=== PATIENT | female | born 1955 | race Caucasian/White ===

== ENCOUNTER → 2016-09-25 | Outpatient (CLI) | payer MEDICARE, OTHER ==
[~2016-09-25] MED LIST: ASPI-825 PO; FURO20 PO; KDUR10 PO; METF500T4 PO; METO50 PO; MONT10TA21 PO; NITR1PAT68 TD; QUET300XR PO; RANO500T3 PO; RISP3 PO; ROSU10 PO; TICA90TA PO; TOPI100 PO
[2016-09-25 10:15] LABS: BASOPHILS % (AUTO) 0.4 % (0.0-2.0); EOSINOPHILS % (AUTO) 2.2 % (1.0-6.0); HEMOGLOBIN 13.6 g/dL (12.0-16.0); LYMPHOCYTES # (AUTO) 1.3 K/uL (1.0-4.8); LYMPHOCYTES % (AUTO) 16.2 % (22.0-44.0); MEAN CORPUSCULAR HEMOGLOBIN 31.2 pg (26.0-34.0); MEAN CORPUSCULAR HGB CONC 33.9 G/dL (31.0-37.0); MEAN CORPUSCULAR VOLUME 92 fL (80-100); MONOCYTES # (AUTO) 0.6 K/uL (0.1-1.0); MONOCYTES % (AUTO) 7.6 % (2.0-9.0); NEUTROPHILS # (AUTO) 5.7 K/uL (1.8-7.7); NEUTROPHILS % (AUTO) 73.6 % (40.0-70.0); PLATELET COUNT (AUTO) 280 K/uL (150-450); RED BLOOD CELL COUNT(AUTO) 4.34 MIL/uL (4.00-5.20); RED CELL DISTRIBUTION WIDTH 14.8 % (11.5-14.5); WHITE BLOOD COUNT (AUTO) 7.8 K/uL (4.5-11.0)
[2016-09-25 10:35] LABS: ALBUMIN 3.7 g/dL (3.4-5.0); BILIRUBIN,TOTAL 0.3 mg/dL (0.1-1.0); CALCIUM, TOTAL 8.9 mg/dL (8.8-10.5); CHOL/HDL RATIO 2.4 (3.9-5.7); CREATININE 1.1 mg/dL (0.60-1.30); MAGNESIUM 2.1 mg/dL (1.80-2.40); THYROID STIMULATING HORMONE 2.01 uIU/mL (0.36-3.74); TOTAL PROTEIN, SERUM 7.1 g/dL (6.4-8.2)
[2016-09-25 10:49] LABS: HEMOGLOBIN A1C 5.9 % (4.5-6.2)
== END | disposition home or self-care (01) ==
LOC: LABPV 07:22
PROVIDERS: ATTEND Internal Medicine Cardiovascular Disease
DX: I11.0 Hypertensive heart disease with heart failure (principal); I50.9 Heart failure, unspecified; E11.8 Type 2 diabetes mellitus with unspecified complications; E55.9 Vitamin D deficiency, unspecified
CPT/HCPCS: 82306; 83036; 83735; 84439; 84443

== ENCOUNTER → 2016-11-22 | Outpatient (CLI) | payer MEDICARE, OTHER ==
[~2016-11-22] MED LIST changes: -TOPI100 PO; +TOPI100T37 PO
[2016-11-22 09:41] LABS: BASOPHILS % (AUTO) 0.5 % (0.0-2.0); EOSINOPHILS % (AUTO) 1.5 % (1.0-6.0); HEMATOCRIT 39.5 % (36-46); HEMOGLOBIN 13.2 g/dL (12.0-16.0); LYMPHOCYTES # (AUTO) 1.8 K/uL (1.0-4.8); LYMPHOCYTES % (AUTO) 23.3 % (22.0-44.0); MEAN CORPUSCULAR HEMOGLOBIN 31.5 pg (26.0-34.0); MEAN CORPUSCULAR HGB CONC 33.5 G/dL (31.0-37.0); MEAN CORPUSCULAR VOLUME 94 fL (80-100); MONOCYTES # (AUTO) 0.6 K/uL (0.1-1.0); NEUTROPHILS # (AUTO) 5.2 K/uL (1.8-7.7); NEUTROPHILS % (AUTO) 66.7 % (40.0-70.0); PLATELET COUNT (AUTO) 304 K/uL (150-450); RED BLOOD CELL COUNT(AUTO) 4.19 MIL/uL (4.00-5.20); WHITE BLOOD COUNT (AUTO) 7.8 K/uL (4.5-11.0)
[2016-11-22 10:07] LABS: ALBUMIN 3.8 g/dL (3.4-5.0); BILIRUBIN,TOTAL 0.2 mg/dL (0.1-1.0); CALCIUM, TOTAL 8.9 mg/dL (8.8-10.5); CHOL/HDL RATIO 1.8 (3.9-5.7); CREATININE 1.05 mg/dL (0.60-1.30); POTASSIUM 4.1 mmol/L (3.5-5.1); TOTAL PROTEIN, SERUM 7.2 g/dL (6.4-8.2)
[2016-11-22 10:33] LABS: HEMOGLOBIN A1C 5.6 % (4.5-6.2)
== END | disposition home or self-care (01) ==
LOC: LABPV 07:11
PROVIDERS: ATTEND Internal Medicine
DX: Z79.899 Other long term (current) drug therapy (principal)
CPT/HCPCS: 83036

== ENCOUNTER → 2017-03-03 | Outpatient (CLI) | payer MEDICARE, OTHER ==
[2017-03-03 10:18] LABS: BASOPHILS % (AUTO) 0.5 % (0.0-2.0); EOSINOPHILS % (AUTO) 1.7 % (1.0-6.0); HEMATOCRIT 37.9 % (36-46); HEMOGLOBIN 12.9 g/dL (12.0-16.0); LYMPHOCYTES # (AUTO) 1.4 K/uL (1.0-4.8); LYMPHOCYTES % (AUTO) 19.4 % (22.0-44.0); MEAN CORPUSCULAR HEMOGLOBIN 31.9 pg (26.0-34.0); MEAN CORPUSCULAR HGB CONC 34.1 G/dL (31.0-37.0); MEAN CORPUSCULAR VOLUME 94 fL (80-100); MONOCYTES # (AUTO) 0.6 K/uL (0.1-1.0); MONOCYTES % (AUTO) 8.3 % (2.0-9.0); NEUTROPHILS # (AUTO) 5.2 K/uL (1.8-7.7); NEUTROPHILS % (AUTO) 70.1 % (40.0-70.0); PLATELET COUNT (AUTO) 277 K/uL (150-450); RED BLOOD CELL COUNT(AUTO) 4.05 MIL/uL (4.00-5.20); RED CELL DISTRIBUTION WIDTH 14.8 % (11.5-14.5)
[2017-03-03 10:27] LABS: HEMOGLOBIN A1C 5.9 % (4.5-6.2)
[2017-03-03 10:37] LABS: ALBUMIN 3.6 g/dL (3.4-5.0); BILIRUBIN,TOTAL 0.4 mg/dL (0.1-1.0); CALCIUM, TOTAL 8.8 mg/dL (8.8-10.5); CHOL/HDL RATIO 1.9 (3.9-5.7); CREATININE 1.12 mg/dL (0.60-1.30); FREE T4 (FREE THYROXINE) 0.83 ng/dL (0.76-1.46); POTASSIUM 4.2 mmol/L (3.5-5.1); THYROID STIMULATING HORMONE 0.27 uIU/mL (0.36-3.74); TOTAL PROTEIN, SERUM 7.1 g/dL (6.4-8.2)
== END | disposition home or self-care (01) ==
LOC: LABPV 07:12
PROVIDERS: ATTEND Internal Medicine Cardiovascular Disease
DX: I11.0 Hypertensive heart disease with heart failure (principal); I50.9 Heart failure, unspecified; E11.8 Type 2 diabetes mellitus with unspecified complications; E55.9 Vitamin D deficiency, unspecified; D56.5 Hemoglobin E-beta thalassemia
CPT/HCPCS: 82306; 83036; 83735; 84439; 84443

== ENCOUNTER → 2017-06-04 | Outpatient (CLI) | payer MEDICARE, OTHER ==
[2017-06-04 08:42] LABS: BASOPHILS % (AUTO) 0.6 % (0.0-2.0); HEMATOCRIT 40.6 % (36-46); HEMOGLOBIN 13.7 g/dL (12.0-16.0); LYMPHOCYTES # (AUTO) 1.4 K/uL (1.0-4.8); LYMPHOCYTES % (AUTO) 21.9 % (22.0-44.0); MEAN CORPUSCULAR HEMOGLOBIN 31.1 pg (26.0-34.0); MEAN CORPUSCULAR HGB CONC 33.8 G/dL (31.0-37.0); MEAN CORPUSCULAR VOLUME 92 fL (80-100); MONOCYTES # (AUTO) 0.5 K/uL (0.1-1.0); MONOCYTES % (AUTO) 7.5 % (2.0-9.0); NEUTROPHILS # (AUTO) 4.5 K/uL (1.8-7.7); PLATELET COUNT (AUTO) 296 K/uL (150-450); RED BLOOD CELL COUNT(AUTO) 4.42 MIL/uL (4.00-5.20); RED CELL DISTRIBUTION WIDTH 14.8 % (11.5-14.5)
[2017-06-04 09:01] LABS: CREATININE 0.99 mg/dL (0.60-1.30); POTASSIUM 4.2 mmol/L (3.5-5.1)
[2017-06-04 09:02] LABS: ALBUMIN 3.6 g/dL (3.4-5.0); BILIRUBIN,TOTAL 0.3 mg/dL (0.1-1.0); CALCIUM, TOTAL 8.7 mg/dL (8.8-10.5); CHOL/HDL RATIO 2.2 (3.9-5.7); FREE T4 (FREE THYROXINE) 0.96 ng/dL (0.76-1.46); MAGNESIUM 1.9 mg/dL (1.80-2.40); THYROID STIMULATING HORMONE 0.06 uIU/mL (0.36-3.74); TOTAL PROTEIN, SERUM 7.1 g/dL (6.4-8.2)
== END | disposition home or self-care (01) ==
LOC: LABPV 07:04
PROVIDERS: ATTEND Internal Medicine Cardiovascular Disease
DX: I70.0 Atherosclerosis of aorta (principal); I51.7 Cardiomegaly; J44.9 Chronic obstructive pulmonary disease, unspecified; I11.0 Hypertensive heart disease with heart failure; I50.9 Heart failure, unspecified; E11.8 Type 2 diabetes mellitus with unspecified complications; E55.9 Vitamin D deficiency, unspecified; D56.5 Hemoglobin E-beta thalassemia
CPT/HCPCS: 71046; 82306; 83036; 83735; 84439; 84443

== ENCOUNTER → 2017-07-10 | Outpatient (CLI) | payer MEDICARE, OTHER ==
[~2017-07-10] MED LIST changes: +METF-444 PO; -METF500T4 PO
[2017-07-10 13:08] LABS: CALCIUM, TOTAL 8.6 mg/dL (8.8-10.5); CREATININE 0.98 mg/dL (0.60-1.30); POTASSIUM 4.5 mmol/L (3.5-5.1)
== END | disposition home or self-care (01) ==
LOC: LABPV 11:14
PROVIDERS: ATTEND Internal Medicine Pulmonary Disease
DX: R60.0 Localized edema (principal); R94.2 Abnormal results of pulmonary function studies
CPT/HCPCS: 85379

== ENCOUNTER → 2017-09-24 | Outpatient (CLI) | payer MEDICARE, OTHER ==
[2017-09-24 09:20] LABS: BASOPHILS % (AUTO) 0.7 % (0.0-2.0); EOSINOPHILS % (AUTO) 1.6 % (1.0-6.0); HEMATOCRIT 37.2 % (36-46); HEMOGLOBIN 12.9 g/dL (12.0-16.0); LYMPHOCYTES # (AUTO) 1.4 K/uL (1.0-4.8); LYMPHOCYTES % (AUTO) 20.2 % (22.0-44.0); MEAN CORPUSCULAR HEMOGLOBIN 31.5 pg (26.0-34.0); MEAN CORPUSCULAR HGB CONC 34.7 G/dL (31.0-37.0); MEAN CORPUSCULAR VOLUME 91 fL (80-100); MONOCYTES # (AUTO) 0.6 K/uL (0.1-1.0); MONOCYTES % (AUTO) 8.2 % (2.0-9.0); NEUTROPHILS # (AUTO) 4.8 K/uL (1.8-7.7); NEUTROPHILS % (AUTO) 69.3 % (40.0-70.0); PLATELET COUNT (AUTO) 293 K/uL (150-450); RED BLOOD CELL COUNT(AUTO) 4.08 MIL/uL (4.00-5.20); RED CELL DISTRIBUTION WIDTH 14.1 % (11.5-14.5)
[2017-09-24 09:29] LABS: HEMOGLOBIN A1C 5.3 % (4.5-6.2)
[2017-09-24 09:43] LABS: ALBUMIN 3.5 g/dL (3.4-5.0); BILIRUBIN,TOTAL 0.4 mg/dL (0.1-1.0); CHOL/HDL RATIO 1.9 (3.9-5.7); CREATININE 0.94 mg/dL (0.60-1.30); FREE T4 (FREE THYROXINE) 1.1 ng/dL (0.76-1.46); MAGNESIUM 2.1 mg/dL (1.80-2.40); POTASSIUM 3.7 mmol/L (3.5-5.1); THYROID STIMULATING HORMONE 0.04 uIU/mL (0.36-3.74); TOTAL PROTEIN, SERUM 6.7 g/dL (6.4-8.2)
== END | disposition home or self-care (01) ==
LOC: LABPV 07:25
PROVIDERS: ATTEND Internal Medicine Cardiovascular Disease
DX: I13.0 Hypertensive heart and chronic kidney disease with heart failure and stage 1 through stage 4 chronic kidney disease, or unspecified chronic kidney disease (principal); I50.9 Heart failure, unspecified; E11.22 Type 2 diabetes mellitus with diabetic chronic kidney disease; E55.9 Vitamin D deficiency, unspecified; E78.5 Hyperlipidemia, unspecified; D56.5 Hemoglobin E-beta thalassemia; E78.00 Pure hypercholesterolemia, unspecified; J44.9 Chronic obstructive pulmonary disease, unspecified; N18.3 Chronic kidney disease, stage 3 (moderate); Z79.899 Other long term (current) drug therapy
CPT/HCPCS: 82306; 83036; 83735; 84439; 84443

== ENCOUNTER → 2017-10-20 | Outpatient (CLI) | payer MEDICARE, OTHER | END | disposition home or self-care (01) | LOC: RADMN 12:54 | PROVIDERS: ATTEND Internal Medicine | DX: M43.22 Fusion of spine, cervical region (principal); I25.10 Atherosclerotic heart disease of native coronary artery without angina pectoris; R91.8 Other nonspecific abnormal finding of lung field; E78.00 Pure hypercholesterolemia, unspecified; J44.9 Chronic obstructive pulmonary disease, unspecified; I50.9 Heart failure, unspecified; Z87.891 Personal history of nicotine dependence | CPT/HCPCS: 71250 ==

== ENCOUNTER → 2018-03-17 | Outpatient (CLI) | payer MEDICARE, OTHER | END | disposition home or self-care (01) | LOC: RADPV 11:59 | PROVIDERS: ATTEND Specialist | DX: R94.31 Abnormal electrocardiogram [ECG] [EKG] (principal); R26.9 Unspecified abnormalities of gait and mobility | CPT/HCPCS: 95816 ==

== ENCOUNTER → 2018-06-10 | Outpatient (CLI) | payer MEDICARE, OTHER ==
[~2018-06-10] MED LIST changes: +QUET300T5 PO; -QUET300XR PO; -ROSU10 PO; +ROSU10TA22 PO
[2018-06-10 09:18] LABS: BASOPHILS % (AUTO) 0.6 % (0.0-2.0); EOSINOPHILS % (AUTO) 1.3 % (1.0-6.0); HEMATOCRIT 40.9 % (36-46); HEMOGLOBIN 13.5 g/dL (12.0-16.0); LYMPHOCYTES % (AUTO) 19.1 % (22.0-44.0); MEAN CORPUSCULAR HEMOGLOBIN 30.6 pg (26.0-34.0); MEAN CORPUSCULAR HGB CONC 33.1 G/dL (31.0-37.0); MEAN CORPUSCULAR VOLUME 92 fL (80-100); MONOCYTES # (AUTO) 0.8 K/uL (0.1-1.0); MONOCYTES % (AUTO) 7.7 % (2.0-9.0); NEUTROPHILS # (AUTO) 7.5 K/uL (1.8-7.7); NEUTROPHILS % (AUTO) 71.3 % (40.0-70.0); PLATELET COUNT (AUTO) 539 K/uL (150-450); RED BLOOD CELL COUNT(AUTO) 4.43 MIL/uL (4.00-5.20); RED CELL DISTRIBUTION WIDTH 15.6 % (11.5-14.5)
[2018-06-10 09:37] LABS: HEMOGLOBIN A1C 6.2 % (4.5-6.2)
[2018-06-10 09:50] LABS: ALBUMIN 3.5 g/dL (3.4-5.0); BILIRUBIN,TOTAL 0.3 mg/dL (0.1-1.0); CHOL/HDL RATIO 2.2 (3.9-5.7); CREATININE 1.03 mg/dL (0.60-1.30); FREE T4 (FREE THYROXINE) 1.05 ng/dL (0.76-1.46); MAGNESIUM 2.2 mg/dL (1.80-2.40); POTASSIUM 3.3 mmol/L (3.5-5.1); THYROID STIMULATING HORMONE 0.25 uIU/mL (0.36-3.74)
== END | disposition home or self-care (01) ==
LOC: LABPV 07:47
PROVIDERS: ATTEND Internal Medicine Cardiovascular Disease
DX: I11.0 Hypertensive heart disease with heart failure (principal); I50.9 Heart failure, unspecified; E11.9 Type 2 diabetes mellitus without complications; E55.9 Vitamin D deficiency, unspecified; D56.5 Hemoglobin E-beta thalassemia
CPT/HCPCS: 82043; 82306; 82570; 83036; 83735; 84439; 84443

== ENCOUNTER → 2018-06-10 | Outpatient (CLI) | payer MEDICARE, OTHER | END | disposition home or self-care (01) | LOC: MSR 07:51 | PROVIDERS: ATTEND Internal Medicine | DX: R91.8 Other nonspecific abnormal finding of lung field (principal); I70.0 Atherosclerosis of aorta; I51.7 Cardiomegaly; I13.0 Hypertensive heart and chronic kidney disease with heart failure and stage 1 through stage 4 chronic kidney disease, or unspecified chronic kidney disease; E11.22 Type 2 diabetes mellitus with diabetic chronic kidney disease; N18.3 Chronic kidney disease, stage 3 (moderate); I50.9 Heart failure, unspecified; Z88.0 Allergy status to penicillin; Z88.8 Allergy status to other drugs, medicaments and biological substances ==

== ENCOUNTER → 2018-11-11 | Outpatient (CLI) | payer MEDICARE, OTHER | END | disposition home or self-care (01) | LOC: RADMN 13:08 | PROVIDERS: ATTEND Internal Medicine Pulmonary Disease | DX: J43.9 Emphysema, unspecified (principal); I70.0 Atherosclerosis of aorta; R91.8 Other nonspecific abnormal finding of lung field; J98.4 Other disorders of lung; F17.218 Nicotine dependence, cigarettes, with other nicotine-induced disorders | CPT/HCPCS: 71250 ==

== ENCOUNTER 2018-12-19 12:03 | Emergency (ER) | payer MEDICARE, MEDICAID ==
[~2018-12-19] VITALS: Ht 160 cm; Wt 68.0 kg
[2018-12-19] MEDS ORDERED: BUPR100 PO (12:12)
[2018-12-19] MEDS ORDERED: LEVO137T24 PO (12:12)
[2018-12-19] MEDS ORDERED: SERT50TA12 PO (12:12)
[2018-12-19 12:36] LABS: GLUCOSE,POINT OF CARE 103 MG/DL (70-110)
[2018-12-19 13:54] VITALS: BP 131/83
== END 2018-12-19 14:15 | disposition home or self-care (01) ==
LOC: EMS 12:05
DX: S93.491A Sprain of other ligament of right ankle, initial encounter (principal); E11.9 Type 2 diabetes mellitus without complications; E78.00 Pure hypercholesterolemia, unspecified; I11.0 Hypertensive heart disease with heart failure; I50.9 Heart failure, unspecified; I25.10 Atherosclerotic heart disease of native coronary artery without angina pectoris; F31.9 Bipolar disorder, unspecified; Z90.710 Acquired absence of both cervix and uterus; Z98.890 Other specified postprocedural states; Z87.891 Personal history of nicotine dependence; Z79.899 Other long term (current) drug therapy; Z88.8 Allergy status to other drugs, medicaments and biological substances; Z88.0 Allergy status to penicillin; Z88.2 Allergy status to sulfonamides; X50.1XXA Overexertion from prolonged static or awkward postures, initial encounter; Y93.01 Activity, walking, marching and hiking; Y92.098 Other place in other non-institutional residence as the place of occurrence of the external cause; Y99.8 Other external cause status

== ENCOUNTER 2019-01-01 21:55 | Emergency (ER) | payer MEDICARE, MEDICAID ==
[~2019-01-01] VITALS: Ht 157.5 cm; Wt 72.7 kg
[~2019-01-01 21:55] MED LIST changes: +BUPR100 PO; +LEVO137T24 PO; -METF-444 PO; -METO50 PO; +SERT50TA12 PO
[2019-01-01 22:42] LABS: BASOPHILS % (AUTO) 0.6 % (0.0-2.0); EOSINOPHILS % (AUTO) 1.6 % (1.0-6.0); HEMATOCRIT 39.1 % (36-46); HEMOGLOBIN 13.3 g/dL (12.0-16.0); LYMPHOCYTES % (AUTO) 23.7 % (22.0-44.0); MEAN CORPUSCULAR HEMOGLOBIN 32.2 pg (26.0-34.0); MEAN CORPUSCULAR VOLUME 95 fL (80-100); MONOCYTES # (AUTO) 1.1 K/uL (0.1-1.0); MONOCYTES % (AUTO) 12.7 % (2.0-9.0); NEUTROPHILS # (AUTO) 5.2 K/uL (1.8-7.7); NEUTROPHILS % (AUTO) 61.4 % (40.0-70.0); PLATELET COUNT (AUTO) 325 K/uL (150-450); RED BLOOD CELL COUNT(AUTO) 4.12 MIL/uL (4.00-5.20); RED CELL DISTRIBUTION WIDTH 15.9 % (11.5-14.5)
[2019-01-01 22:54] LABS: ANION GAP 14 mmol/L (8-16); CALCIUM, TOTAL 8.7 mg/dL (8.8-10.5); CARBON DIOXIDE 21 mmol/L (22-29); CHLORIDE 104 mmol/L (98-107); CREATININE 0.89 mg/dL (0.60-1.30); GLOMERULAR FILTR. RATE CALC > 60 mL/min (>60); GLUCOSE,RANDOM 140 mg/dL (70-110); POTASSIUM 3.4 mmol/L (3.5-5.1); SODIUM SERUM 139 mmol/L (136-145); UREA NITROGEN, BLOOD 17 mg/dL (7-18)
[2019-01-01 23:00] LABS: ALANINE AMINOTRANSFERASE 14 U/L (12-78); ALBUMIN 3.6 g/dL (3.4-5.0); ALKALINE PHOSPHATASE 110 U/L (46-116); ASPARTATE AMINOTRANSFERASE 13 U/L (15-37); BILIRUBIN,TOTAL 0.2 mg/dL (0.1-1.0); TOTAL PROTEIN, SERUM 6.8 g/dL (6.4-8.2)
[2019-01-02] MEDS ORDERED: MORPHINE SULFATE 2 MG/ML SYRINGE IVP ONE (00:15)
[2019-01-02] MEDS ORDERED: MORPHINE SULFATE 4 MG/ML SYRINGE IVP ONE (00:15)
[2019-01-02] MEDS ORDERED: NITROGLYCERIN 0.4 MG SUBLINGUAL TABLET #25 SL ONE (00:15)
[2019-01-02] MEDS ORDERED: ASPIRIN 325 MG TABLET PO ONE (00:15)
[2019-01-02] MEDS ORDERED: ASPIRIN 81 MG CHEWABLE TABLET PO ONE (00:45)
[2019-01-02 00:48] LABS: LIPASE 290 U/L (73-393)
[2019-01-02 00:57] LABS: PROTHROMBIN TIME 9.8 SEC (9.4-11.6)
[2019-01-02] MEDS ORDERED: POTASSIUM CHLORIDE 10% 40 MEQ/30 ML LIQUID UDCUP PO ONE (02:00)
[2019-01-02] MEDS ORDERED: NITROGLYCERIN 2% (1 GM=INCH) PACKET TP ONE (02:00)
[2019-01-02] MEDS ORDERED: METOPROLOL TARTRATE 5 MG/5 ML VIAL IVP ONE (02:15)
[2019-01-02] MEDS ORDERED: ENOXAPARIN SODIUM 60 MG/0.6 ML PF SYRINGE SQ ONE (02:15)
[2019-01-02] MEDS ORDERED: NITROGLYCERIN 50 MG/D5% WATER 250 ML IV PRN (03:30)
[2019-01-02 04:23] VITALS: BP 140/76
== END 2019-01-02 05:05 | disposition short-term general hospital (02) ==
LOC: EMS 21:56
DX: I21.4 Non-ST elevation (NSTEMI) myocardial infarction (principal); E87.6 Hypokalemia; I25.10 Atherosclerotic heart disease of native coronary artery without angina pectoris; I50.9 Heart failure, unspecified; E11.9 Type 2 diabetes mellitus without complications; E78.00 Pure hypercholesterolemia, unspecified; F17.210 Nicotine dependence, cigarettes, uncomplicated; F31.9 Bipolar disorder, unspecified; Z90.710 Acquired absence of both cervix and uterus; Z79.82 Long term (current) use of aspirin; Z79.899 Other long term (current) drug therapy; Z88.6 Allergy status to analgesic agent; Z88.0 Allergy status to penicillin; Z88.8 Allergy status to other drugs, medicaments and biological substances
CPT/HCPCS: 36415; 71045; 80053; 82962; 83690; 84484; 85025; 85610; 85730; 93005 ×2; 96365; 96372; 96375; 99291; 99292; J1650; J2270; J3490 ×2

== ENCOUNTER 2023-03-17 15:55 | Inpatient (IN) | payer MEDICARE, SELFPAY ==
[~2023-03-17] VITALS: Ht 160 cm; Wt 76.6 kg
[~2023-03-17 15:55] MED LIST changes: -ASPI-825 PO; +BUPR-49 PO; -BUPR100 PO; -KDUR10 PO; +LEVO125T95 PO; -LEVO137T24 PO; +MEMA10TA11 PO; +METF-1211 PO; +MONT-35 PO; -MONT10TA21 PO; -NITR1PAT68 TD; +POTA8TAB71 PO; +QUET-28 PO; -QUET300T5 PO; +RANO500T27 PO; -RANO500T3 PO; -RISP3 PO; +RISP4TAB73 PO; -ROSU10TA22 PO; +ROSU20TA73 PO; +SERT-439 PO; -SERT50TA12 PO
[2023-03-17 16:33] LABS: BASOPHILS % (AUTO) 0.9 % (0.0-2.0); EOSINOPHILS % (AUTO) 1.5 % (1.0-6.0); HEMATOCRIT 46.1 % (36-46); HEMOGLOBIN 15.4 g/dL (12.0-16.0); LYMPHOCYTES # (AUTO) 1.5 K/uL (1.0-4.8); MEAN CORPUSCULAR HEMOGLOBIN 31.7 pg (26.0-34.0); MEAN CORPUSCULAR HGB CONC 33.4 G/dL (31.0-37.0); MEAN CORPUSCULAR VOLUME 95 fL (80-100); MONOCYTES # (AUTO) 0.9 K/uL (0.1-1.0); MONOCYTES % (AUTO) 9.4 % (2.0-9.0); NEUTROPHILS # (AUTO) 6.7 K/uL (1.8-7.7); NEUTROPHILS % (AUTO) 72.2 % (40.0-70.0); RED BLOOD CELL COUNT(AUTO) 4.87 MIL/uL (4.00-5.20); RED CELL DISTRIBUTION WIDTH 14.1 % (11.5-14.5); WHITE BLOOD COUNT (AUTO) 9.3 K/uL (4.5-11.0)
[2023-03-17 16:51] LABS: ANION GAP 10 mmol/L (8-16); CALCIUM, TOTAL 9.2 mg/dL (8.8-10.5); CARBON DIOXIDE 27 mmol/L (22-29); CHLORIDE 104 mmol/L (98-107); CREATININE 0.82 mg/dL (0.60-1.30); GLOMERULAR FILTR. RATE CALC > 60 mL/min (>60); GLUCOSE,RANDOM 130 mg/dL (70-110); POTASSIUM 4.4 mmol/L (3.5-5.1); SODIUM SERUM 141 mmol/L (136-145); UREA NITROGEN, BLOOD 21 mg/dL (7-18)
[2023-03-17 16:56] LABS: ALANINE AMINOTRANSFERASE 21 U/L (12-78); ALBUMIN 3.6 g/dL (3.4-5.0); ALKALINE PHOSPHATASE 168 U/L (46-116); ASPARTATE AMINOTRANSFERASE 25 U/L (15-37); BILIRUBIN,TOTAL 0.5 mg/dL (0.1-1.0); PLATELET COUNT (AUTO) 209 K/uL (150-450); TOTAL PROTEIN, SERUM 7.4 g/dL (6.4-8.2)
[2023-03-17 17:06] LABS: ALCOHOL, BLOOD (SERUM) < 3 mg/dL (0-10)
[2023-03-17 17:41] LABS: COVID AG,FIA SOURCE NASAL SWAB
[2023-03-17 18:41] LABS: SARS-COV2 (COVID) ANTIGEN,FIA Negative (Negative)
[2023-03-17 18:58] LABS: PH,URINE DRUG SCREEN 5.5 (5.0-8.0)
[2023-03-17 19:06] LABS: AMPHET/METH SCREEN,URINE NEGATIVE (NEGATIVE); BARBITURATE SCREEN, URINE NEGATIVE (NEGATIVE); BENZODIAZEPINES SCREEN,URINE NEGATIVE (NEGATIVE); CANNABINOID SCREEN,URINE NEGATIVE (NEGATIVE); COCAINE SCREEN,URINE NEGATIVE (NEGATIVE); METHADONE SCREEN, URINE NEGATIVE (NEGATIVE); OPIATE SCREEN,URINE NEGATIVE (NEGATIVE); PHENCYCLIDINE SCREEN,URINE NEGATIVE (NEGATIVE)
[2023-03-17 19:23] LABS: ALCOHOL, URINE DRUG SCREEN NEGATIVE (NEGATIVE)
[2023-03-17] MEDS ORDERED: ZOLPIDEM TARTRATE 10 MG TABLET PO PRN (21:15)
[2023-03-17] MEDS ORDERED: LORazepam 1 MG TABLET PO PRN (21:15)
[2023-03-17] MEDS ORDERED: ChlorproMAZINE HCL 100 MG TABLET PO PRN (21:15)
[2023-03-18 02:29] VITALS: BP 132/72; PULSE 132; RESP 18; TEMP 97.3
[2023-03-18] MEDS ORDERED: GLUCAGON,HUMAN RECOMBINANT 1 MG VIAL IM PRN (07:30)
[2023-03-18 08:30] VITALS: BP 120/74; PULSE 81; RESP 18; TEMP 97.8
[2023-03-18] MEDS: MetFORMIN HCL 500 MG TABLET PO SCH (08:32)
[2023-03-18] MEDS: POTASSIUM CHLORIDE 8 MEQ ER TABLET PO SCH (08:33)
[2023-03-18] MEDS: RANOLAZINE 500 MG ER TABLET PO SCH ×2 (08:33→16:25)
[2023-03-18] MEDS: NYSTATIN 15 GM POWDER BOTTLE TP SCH ×2 (08:34→16:25)
[2023-03-18] MEDS: ROSUVASTATIN CALCIUM 20 MG TABLET PO SCH (08:34)
[2023-03-18] MEDS: FUROSEMIDE 20 MG TABLET PO SCH (08:34)
[2023-03-18] MEDS: MONTELUKAST SODIUM 10 MG TABLET PO SCH (08:34)
[2023-03-18] MEDS: TICAGRELOR 90 MG TABLET PO SCH ×2 (08:34→16:25)
[2023-03-18] MEDS: BuPROPion HCL XL 150 MG ER TABLET PO SCH (08:35)
[2023-03-18 17:42] LABS: GLUCOMETER DEV NAME(LOC) 3E.C; GLUCOSE,POINT OF CARE 93 MG/DL (70-110)
[2023-03-18] MEDS: QUEtiapine FUMARATE 200 MG TABLET PO SCH (20:43)
[2023-03-18] MEDS: MEMANTINE HCL 10 MG TABLET PO SCH (20:44)
[2023-03-18] MEDS: RisperiDONE 2 MG TABLET PO SCH (20:44)
[2023-03-18] MEDS: SERTRALINE HCL 50 MG TABLET PO SCH (20:44)
[2023-03-18] MEDS ORDERED: MEMANTINE HCL 5 MG TABLET PO SCH (21:00)
[2023-03-18] MEDS ORDERED: TraZODone HCL 100 MG TABLET PO ONE (22:30)
[2023-03-18] MEDS ORDERED: LORazepam 0.5 MG TABLET PO PRN (23:00)
[2023-03-19] MEDS: INSULIN LISPRO 100 UNITS/ML SQ PRN ×2 (06:42→18:42)
[2023-03-19 06:46] LABS: GLUCOMETER DEV NAME(LOC) 3E.C; GLUCOSE,POINT OF CARE 123 MG/DL (70-110)
[2023-03-19] MEDS: LEVOTHYROXINE SODIUM 125 MCG TABLET PO SCH (06:53)
[2023-03-19] MEDS: MetFORMIN HCL 500 MG TABLET PO SCH (06:53)
[2023-03-19 07:48] LABS: FREE T4 (FREE THYROXINE) 1.28 ng/dL (0.76-1.46); THYROID STIMULATING HORMONE 3.69 uIU/mL (0.36-3.74)
[2023-03-19] MEDS: FUROSEMIDE 20 MG TABLET PO SCH ×2 (09:00→09:27)
[2023-03-19 09:09] VITALS: RESP 18
[2023-03-19] MEDS: RANOLAZINE 500 MG ER TABLET PO SCH ×2 (09:28→16:32)
[2023-03-19] MEDS: TICAGRELOR 90 MG TABLET PO SCH ×2 (09:29→16:33)
[2023-03-19] MEDS: MEMANTINE HCL 10 MG TABLET PO SCH ×2 (09:29→16:32)
[2023-03-19] MEDS: POTASSIUM CHLORIDE 8 MEQ ER TABLET PO SCH (09:30)
[2023-03-19] MEDS: ROSUVASTATIN CALCIUM 20 MG TABLET PO SCH (09:30)
[2023-03-19] MEDS: NYSTATIN 15 GM POWDER BOTTLE TP SCH ×2 (09:31→16:32)
[2023-03-19] MEDS: BuPROPion HCL XL 150 MG ER TABLET PO SCH (09:31)
[2023-03-19] MEDS: MONTELUKAST SODIUM 10 MG TABLET PO SCH (09:31)
[2023-03-19 17:57] LABS: GLUCOMETER DEV NAME(LOC) 3E.C; GLUCOSE,POINT OF CARE 109 MG/DL (70-110)
[2023-03-19 20:28] VITALS: BP 165/68; PULSE 97; RESP 18; TEMP 96.8
[2023-03-19] MEDS: SERTRALINE HCL 50 MG TABLET PO SCH (20:50)
[2023-03-19] MEDS: QUEtiapine FUMARATE 200 MG TABLET PO SCH (20:51)
[2023-03-19] MEDS: RisperiDONE 2 MG TABLET PO SCH (20:51)
[2023-03-19] MEDS ORDERED: TraZODone HCL 100 MG TABLET PO PRN (21:00)
[2023-03-20 06:16] LABS: GLUCOMETER DEV NAME(LOC) 3E.C; GLUCOSE,POINT OF CARE 126 MG/DL (70-110)
[2023-03-20] MEDS: LEVOTHYROXINE SODIUM 125 MCG TABLET PO SCH (06:28)
[2023-03-20] MEDS: INSULIN LISPRO 100 UNITS/ML SQ PRN ×2 (06:53→17:27)
[2023-03-20] MEDS: MetFORMIN HCL 500 MG TABLET PO SCH (06:53)
[2023-03-20] MEDS: MEMANTINE HCL 10 MG TABLET PO SCH ×2 (09:22→17:22)
[2023-03-20] MEDS: MONTELUKAST SODIUM 10 MG TABLET PO SCH (09:22)
[2023-03-20] MEDS: TICAGRELOR 90 MG TABLET PO SCH ×2 (09:22→17:22)
[2023-03-20] MEDS: POTASSIUM CHLORIDE 8 MEQ ER TABLET PO SCH (09:23)
[2023-03-20] MEDS: BuPROPion HCL XL 150 MG ER TABLET PO SCH (09:23)
[2023-03-20] MEDS: FUROSEMIDE 20 MG TABLET PO SCH (09:23)
[2023-03-20] MEDS: RANOLAZINE 500 MG ER TABLET PO SCH ×2 (09:23→17:22)
[2023-03-20] MEDS: ROSUVASTATIN CALCIUM 20 MG TABLET PO SCH (09:23)
[2023-03-20 10:14] VITALS: BP 120/66; PULSE 93; RESP 18; TEMP 98.2
[2023-03-20] MEDS: NYSTATIN 15 GM POWDER BOTTLE TP SCH ×2 (12:29→17:22)
[2023-03-20 17:27] LABS: GLUCOMETER DEV NAME(LOC) 3E.C; GLUCOSE,POINT OF CARE 115 MG/DL (70-110)
[2023-03-20] MEDS: SERTRALINE HCL 50 MG TABLET PO SCH (20:49)
[2023-03-20] MEDS: RisperiDONE 2 MG TABLET PO SCH (20:49)
[2023-03-20] MEDS: QUEtiapine FUMARATE 200 MG TABLET PO SCH (20:49)
[2023-03-20 21:15] VITALS: BP 108/67; PULSE 89; RESP 18; TEMP 98.3
[2023-03-21 06:21] LABS: GLUCOMETER DEV NAME(LOC) 3E.C; GLUCOSE,POINT OF CARE 109 MG/DL (70-110)
[2023-03-21] MEDS: LEVOTHYROXINE SODIUM 125 MCG TABLET PO SCH (06:36)
[2023-03-21] MEDS: INSULIN LISPRO 100 UNITS/ML SQ PRN (06:37)
[2023-03-21] MEDS: MetFORMIN HCL 500 MG TABLET PO SCH (06:52)
[2023-03-21] MEDS: NYSTATIN 15 GM POWDER BOTTLE TP SCH ×2 (09:03→16:44)
[2023-03-21] MEDS: POTASSIUM CHLORIDE 8 MEQ ER TABLET PO SCH (09:03)
[2023-03-21] MEDS: RANOLAZINE 500 MG ER TABLET PO SCH ×2 (09:03→16:43)
[2023-03-21] MEDS: MEMANTINE HCL 10 MG TABLET PO SCH ×2 (09:03→16:43)
[2023-03-21] MEDS: TICAGRELOR 90 MG TABLET PO SCH ×2 (09:03→16:44)
[2023-03-21] MEDS: FUROSEMIDE 20 MG TABLET PO SCH (09:03)
[2023-03-21] MEDS: MONTELUKAST SODIUM 10 MG TABLET PO SCH (09:03)
[2023-03-21] MEDS: ROSUVASTATIN CALCIUM 20 MG TABLET PO SCH (09:04)
[2023-03-21] MEDS: BuPROPion HCL XL 150 MG ER TABLET PO SCH (09:04)
[2023-03-21 09:59] VITALS: BP 110/65; PULSE 98; RESP 18; TEMP 98
[2023-03-21 17:00] LABS: GLUCOMETER DEV NAME(LOC) 3E.C; GLUCOSE,POINT OF CARE 104 MG/DL (70-110)
[2023-03-21 20:04] VITALS: BP 128/82; PULSE 87; RESP 18; TEMP 97.1
[2023-03-21] MEDS: QUEtiapine FUMARATE 200 MG TABLET PO SCH (20:40)
[2023-03-21] MEDS: SERTRALINE HCL 50 MG TABLET PO SCH (20:41)
[2023-03-21] MEDS: RisperiDONE 2 MG TABLET PO SCH (20:41)
[2023-03-22 06:17] LABS: GLUCOMETER DEV NAME(LOC) 3E.C; GLUCOSE,POINT OF CARE 124 MG/DL (70-110)
[2023-03-22] MEDS: LEVOTHYROXINE SODIUM 125 MCG TABLET PO SCH (06:29)
[2023-03-22] MEDS: INSULIN LISPRO 100 UNITS/ML SQ PRN ×2 (06:30→17:47)
[2023-03-22] MEDS: MetFORMIN HCL 500 MG TABLET PO SCH (07:02)
[2023-03-22] MEDS: FUROSEMIDE 20 MG TABLET PO SCH (08:49)
[2023-03-22] MEDS: MEMANTINE HCL 10 MG TABLET PO SCH ×2 (08:50→16:44)
[2023-03-22] MEDS: MONTELUKAST SODIUM 10 MG TABLET PO SCH (08:50)
[2023-03-22] MEDS: TICAGRELOR 90 MG TABLET PO SCH ×2 (08:50→16:44)
[2023-03-22] MEDS: BuPROPion HCL XL 150 MG ER TABLET PO SCH (08:50)
[2023-03-22] MEDS: POTASSIUM CHLORIDE 8 MEQ ER TABLET PO SCH (08:50)
[2023-03-22] MEDS: RANOLAZINE 500 MG ER TABLET PO SCH ×2 (08:50→16:44)
[2023-03-22] MEDS: ROSUVASTATIN CALCIUM 20 MG TABLET PO SCH (08:51)
[2023-03-22] MEDS: NYSTATIN 15 GM POWDER BOTTLE TP SCH ×2 (08:51→16:43)
[2023-03-22 08:54] VITALS: BP 127/73; PULSE 81; RESP 16; TEMP 96.9
[2023-03-22 17:37] LABS: GLUCOMETER DEV NAME(LOC) 3E.C; GLUCOSE,POINT OF CARE 100 MG/DL (70-110)
[2023-03-22] MEDS: QUEtiapine FUMARATE 200 MG TABLET PO SCH (20:53)
[2023-03-22] MEDS: RisperiDONE 2 MG TABLET PO SCH (20:53)
[2023-03-22] MEDS: SERTRALINE HCL 50 MG TABLET PO SCH (20:53)
[2023-03-22 22:16] VITALS: BP 132/58; PULSE 84; RESP 18; TEMP 98.1
[2023-03-23 06:11] LABS: GLUCOMETER DEV NAME(LOC) 3E.C; GLUCOSE,POINT OF CARE 108 MG/DL (70-110)
[2023-03-23] MEDS: LEVOTHYROXINE SODIUM 125 MCG TABLET PO SCH (06:32)
[2023-03-23] MEDS: INSULIN LISPRO 100 UNITS/ML SQ PRN ×2 (06:33→18:21)
[2023-03-23] MEDS: MetFORMIN HCL 500 MG TABLET PO SCH (06:44)
[2023-03-23] MEDS: FUROSEMIDE 20 MG TABLET PO SCH (09:36)
[2023-03-23] MEDS: MONTELUKAST SODIUM 10 MG TABLET PO SCH (09:36)
[2023-03-23] MEDS: NYSTATIN 15 GM POWDER BOTTLE TP SCH ×2 (09:36→16:49)
[2023-03-23] MEDS: MEMANTINE HCL 10 MG TABLET PO SCH ×2 (09:36→16:49)
[2023-03-23] MEDS: RANOLAZINE 500 MG ER TABLET PO SCH ×2 (09:37→16:49)
[2023-03-23] MEDS: POTASSIUM CHLORIDE 8 MEQ ER TABLET PO SCH (09:37)
[2023-03-23] MEDS: ROSUVASTATIN CALCIUM 20 MG TABLET PO SCH (09:37)
[2023-03-23] MEDS: TICAGRELOR 90 MG TABLET PO SCH ×2 (09:37→16:49)
[2023-03-23] MEDS: BuPROPion HCL XL 150 MG ER TABLET PO SCH (09:37)
[2023-03-23 09:48] VITALS: BP 132/75; PULSE 75; RESP 18; TEMP 98.1
[2023-03-23 17:57] LABS: GLUCOMETER DEV NAME(LOC) 3E.I 2; GLUCOSE,POINT OF CARE 99 MG/DL (70-110)
[2023-03-23] MEDS: SERTRALINE HCL 50 MG TABLET PO SCH (21:19)
[2023-03-23] MEDS: QUEtiapine FUMARATE 200 MG TABLET PO SCH (21:19)
[2023-03-23] MEDS: RisperiDONE 2 MG TABLET PO SCH (21:19)
[2023-03-23 21:21] VITALS: BP 120/80; PULSE 81; RESP 18; TEMP 98.1
[2023-03-24 05:51] LABS: GLUCOMETER DEV NAME(LOC) 3E.C; GLUCOSE,POINT OF CARE 99 MG/DL (70-110)
[2023-03-24] MEDS: MetFORMIN HCL 500 MG TABLET PO SCH (06:45)
[2023-03-24] MEDS: LEVOTHYROXINE SODIUM 125 MCG TABLET PO SCH (06:45)
[2023-03-24] MEDS: POTASSIUM CHLORIDE 8 MEQ ER TABLET PO SCH (09:17)
[2023-03-24] MEDS: MEMANTINE HCL 10 MG TABLET PO SCH ×2 (09:17→16:09)
[2023-03-24] MEDS: RANOLAZINE 500 MG ER TABLET PO SCH ×2 (09:17→16:09)
[2023-03-24] MEDS: TICAGRELOR 90 MG TABLET PO SCH ×2 (09:17→16:09)
[2023-03-24] MEDS: NYSTATIN 15 GM POWDER BOTTLE TP SCH ×2 (09:17→16:09)
[2023-03-24] MEDS: BuPROPion HCL XL 150 MG ER TABLET PO SCH (09:17)
[2023-03-24] MEDS: MONTELUKAST SODIUM 10 MG TABLET PO SCH (09:18)
[2023-03-24] MEDS: ROSUVASTATIN CALCIUM 20 MG TABLET PO SCH (09:18)
[2023-03-24] MEDS: FUROSEMIDE 20 MG TABLET PO SCH (09:18)
[2023-03-24 09:34] VITALS: RESP 18
[2023-03-24] MEDS: INSULIN LISPRO 100 UNITS/ML SQ PRN (16:17)
[2023-03-24 16:31] LABS: GLUCOMETER DEV NAME(LOC) 3E.I 2; GLUCOSE,POINT OF CARE 86 MG/DL (70-110)
[2023-03-24 20:46] VITALS: BP 122/60; PULSE 80; RESP 18; TEMP 98.5
[2023-03-24] MEDS: QUEtiapine FUMARATE 200 MG TABLET PO SCH (21:04)
[2023-03-24] MEDS: SERTRALINE HCL 50 MG TABLET PO SCH (21:04)
[2023-03-24] MEDS: RisperiDONE 2 MG TABLET PO SCH (21:04)
[2023-03-25 06:31] LABS: GLUCOMETER DEV NAME(LOC) 3E.C; GLUCOSE,POINT OF CARE 78 MG/DL (70-110)
[2023-03-25] MEDS: INSULIN LISPRO 100 UNITS/ML SQ PRN ×2 (06:53→17:40)
[2023-03-25] MEDS: LEVOTHYROXINE SODIUM 125 MCG TABLET PO SCH (06:56)
[2023-03-25] MEDS: MetFORMIN HCL 500 MG TABLET PO SCH (07:18)
[2023-03-25] MEDS: TICAGRELOR 90 MG TABLET PO SCH ×2 (08:28→16:23)
[2023-03-25] MEDS: MONTELUKAST SODIUM 10 MG TABLET PO SCH (08:29)
[2023-03-25] MEDS: POTASSIUM CHLORIDE 8 MEQ ER TABLET PO SCH (08:29)
[2023-03-25] MEDS: ROSUVASTATIN CALCIUM 20 MG TABLET PO SCH (08:29)
[2023-03-25] MEDS: MEMANTINE HCL 10 MG TABLET PO SCH ×2 (08:29→16:22)
[2023-03-25] MEDS: FUROSEMIDE 20 MG TABLET PO SCH (08:29)
[2023-03-25] MEDS: BuPROPion HCL XL 150 MG ER TABLET PO SCH (08:29)
[2023-03-25] MEDS: RANOLAZINE 500 MG ER TABLET PO SCH ×2 (08:29→16:22)
[2023-03-25] MEDS: NYSTATIN 15 GM POWDER BOTTLE TP SCH ×2 (11:01→16:25)
[2023-03-25 11:07] VITALS: BP 120/65; PULSE 74; RESP 18; TEMP 97.5
[2023-03-25] MEDS ORDERED: DEXTROSE 50%-WATER 25 GM/50 ML SYRINGE IVP PRN (12:00)
[2023-03-25] MEDS ORDERED: BISACODYL 5 MG EC TABLET PO PRN (13:15)
[2023-03-25] MEDS ORDERED: SERT-439 PO (16:11)
[2023-03-25] MEDS ORDERED: MELA5TAB40 PO (16:11)
[2023-03-25] MEDS ORDERED: BREX1TAB PO (16:11)
[2023-03-25] MEDS ORDERED: BUPR-49 PO (16:11)
[2023-03-25 16:56] LABS: GLUCOMETER DEV NAME(LOC) 3E.C; GLUCOSE,POINT OF CARE 102 MG/DL (70-110)
[2023-03-25] MEDS: SERTRALINE HCL 50 MG TABLET PO SCH (20:51)
[2023-03-25] MEDS ORDERED: QUEtiapine FUMARATE 200 MG TABLET PO SCH (21:00)
[2023-03-25] MEDS ORDERED: BREXPIPRAZOLE 1 MG TABLET PO SCH (21:00)
[2023-03-25 21:33] VITALS: BP 124/79; PULSE 82; RESP 19; TEMP 97.8
[2023-03-26 06:46] LABS: GLUCOMETER DEV NAME(LOC) 3E.C; GLUCOSE,POINT OF CARE 85 MG/DL (70-110)
[2023-03-26] MEDS: INSULIN LISPRO 100 UNITS/ML SQ PRN (06:55)
[2023-03-26] MEDS: LEVOTHYROXINE SODIUM 125 MCG TABLET PO SCH (06:56)
[2023-03-26] MEDS: MetFORMIN HCL 500 MG TABLET PO SCH (06:56)
[2023-03-26] MEDS: RANOLAZINE 500 MG ER TABLET PO SCH ×2 (09:11→17:00)
[2023-03-26] MEDS: TICAGRELOR 90 MG TABLET PO SCH ×2 (09:11→17:00)
[2023-03-26] MEDS: NYSTATIN 15 GM POWDER BOTTLE TP SCH ×2 (09:11→17:00)
[2023-03-26] MEDS: FUROSEMIDE 20 MG TABLET PO SCH (09:12)
[2023-03-26] MEDS: ROSUVASTATIN CALCIUM 20 MG TABLET PO SCH (09:12)
[2023-03-26] MEDS: BuPROPion HCL XL 150 MG ER TABLET PO SCH (09:12)
[2023-03-26] MEDS: MONTELUKAST SODIUM 10 MG TABLET PO SCH (09:13)
[2023-03-26] MEDS: POTASSIUM CHLORIDE 8 MEQ ER TABLET PO SCH (09:13)
[2023-03-26] MEDS: MEMANTINE HCL 10 MG TABLET PO SCH ×2 (09:15→17:00)
[2023-03-26 10:02] VITALS: BP 103/73; PULSE 78; RESP 18; TEMP 97.5
[2023-03-26] MEDS ORDERED: METF-1211 PO (15:01)
[2023-03-26] MEDS ORDERED: TICA90TA PO (15:01)
[2023-03-26] MEDS ORDERED: ROSU20TA73 PO (15:01)
[2023-03-26] MEDS ORDERED: MONT-35 PO (15:01)
[2023-03-26] MEDS ORDERED: FURO-152 PO (15:01)
[2023-03-26] MEDS ORDERED: LEVO125 PO (15:01)
[2023-03-26] MEDS ORDERED: SLOWK8 PO (15:01)
== END 2023-03-26 15:10 | disposition home or self-care (01) | DRG 885 ==
LOC: EMS 16:03 → 3EX 21:15 → UNDOADMIN 21:15 → 3EX 03-18 01:42
PROVIDERS: ADMIT Psychiatry & Neurology Psychiatry; ATTEND Psychiatry & Neurology Psychiatry
PROC: GZHZZZZ Group Psychotherapy (ICD-10-PCS; principal; 2023-03-19)
PROC: GZ56ZZZ Individual Psychotherapy, Supportive (ICD-10-PCS; 2023-03-19)
DX: F31.5 Bipolar disorder, current episode depressed, severe, with psychotic features (principal); I11.0 Hypertensive heart disease with heart failure; R45.851 Suicidal ideations; I25.10 Atherosclerotic heart disease of native coronary artery without angina pectoris; G89.29 Other chronic pain; E11.9 Type 2 diabetes mellitus without complications; I50.9 Heart failure, unspecified; J44.9 Chronic obstructive pulmonary disease, unspecified; E78.00 Pure hypercholesterolemia, unspecified; B36.9 Superficial mycosis, unspecified; Z20.822 Contact with and (suspected) exposure to COVID-19; E03.9 Hypothyroidism, unspecified; G47.00 Insomnia, unspecified; G30.9 Alzheimer's disease, unspecified; Z60.8 Other problems related to social environment; F02.80 Dementia in other diseases classified elsewhere, unspecified severity, without behavioral disturbance, psychotic disturbance, mood disturbance, and anxiety; K59.00 Constipation, unspecified; Z55.9 Problems related to education and literacy, unspecified; Z59.9 Problem related to housing and economic circumstances, unspecified; Z63.9 Problem related to primary support group, unspecified; Z65.3 Problems related to other legal circumstances; Z87.891 Personal history of nicotine dependence; Z90.710 Acquired absence of both cervix and uterus; Z98.1 Arthrodesis status; Z88.6 Allergy status to analgesic agent; Z88.1 Allergy status to other antibiotic agents; Z88.8 Allergy status to other drugs, medicaments and biological substances; Z88.0 Allergy status to penicillin; Z56.0 Unemployment, unspecified; Z79.4 Long term (current) use of insulin
CPT/HCPCS: 80053; 80061; 80307; 82962; 83036; 84439; 84443; 85025; 99285; G0378; G0480; Q9967

== ENCOUNTER 2023-11-10 17:05 | Emergency (ER) | payer MEDICARE, MEDICAID ==
[~2023-11-10] VITALS: Ht 157.5 cm; Wt 61.4 kg
[~2023-11-10 17:05] MED LIST changes: +BREX1TAB PO; +FURO-152 PO; +LEVO125 PO; +MELA5TAB40 PO; -MEMA10TA11 PO; +MEMA10TA24 PO; +POLYOS OD; -RISP4TAB73 PO; +RISP4TAB94 PO; +SLOWK8 PO
[2023-11-10 17:09] VITALS: BP 151/74; PULSE 94; RESP 16; TEMP 97.9; O2SAT 100
[2023-11-10 22:57] LABS: COVID AG,FIA SOURCE NASAL SWAB
[2023-11-10 23:13] LABS: SARS-COV2 (COVID) ANTIGEN,FIA Negative (Negative)
== END 2023-11-11 00:15 | disposition home or self-care (01) ==
LOC: EMS 17:05
DX: F32.A Depression, unspecified (principal); F17.210 Nicotine dependence, cigarettes, uncomplicated; J44.9 Chronic obstructive pulmonary disease, unspecified; K21.9 Gastro-esophageal reflux disease without esophagitis; Z88.0 Allergy status to penicillin; Z88.6 Allergy status to analgesic agent; Z88.8 Allergy status to other drugs, medicaments and biological substances; Z20.822 Contact with and (suspected) exposure to COVID-19
CPT/HCPCS: 99283

== ENCOUNTER 2024-01-10 17:35 | Inpatient (IN) | payer MEDICARE, MEDICAID ==
[~2024-01-10] VITALS: Ht 160 cm; Wt 67.7 kg
[~2024-01-10 17:35] MED LIST changes: -FURO-152 PO; -FURO20 PO; +FURO20TA5 PO; -LEVO125 PO; -POLYOS OD; -ROSU20TA73 PO; +ROSU20TA98 PO; -SLOWK8 PO
[2024-01-10 20:14] LABS: COVID AG,FIA SOURCE NASAL SWAB
[2024-01-10 20:23] LABS: PH,URINE DRUG SCREEN 6.5 (5.0-8.0)
[2024-01-10 20:23] LABS: SARS-COV2 (COVID) ANTIGEN,FIA Negative (Negative)
[2024-01-10 20:31] LABS: AMPHET/METH SCREEN,URINE NEGATIVE (NEGATIVE); BARBITURATE SCREEN, URINE NEGATIVE (NEGATIVE); BENZODIAZEPINES SCREEN,URINE NEGATIVE (NEGATIVE); CANNABINOID SCREEN,URINE NEGATIVE (NEGATIVE); COCAINE SCREEN,URINE NEGATIVE (NEGATIVE); METHADONE SCREEN, URINE NEGATIVE (NEGATIVE); OPIATE SCREEN,URINE NEGATIVE (NEGATIVE); PHENCYCLIDINE SCREEN,URINE NEGATIVE (NEGATIVE)
[2024-01-10 20:32] LABS: ALCOHOL, URINE DRUG SCREEN NEGATIVE (NEGATIVE)
[2024-01-10 20:34] LABS: BASOPHILS % (AUTO) 1.3 % (0.0-2.0); EOSINOPHILS % (AUTO) 1.7 % (1.0-6.0); HEMATOCRIT 38.6 % (36-46); HEMOGLOBIN 12.6 g/dL (12.0-16.0); LYMPHOCYTES # (AUTO) 1.9 K/uL (1.0-4.8); LYMPHOCYTES % (AUTO) 22.9 % (22.0-44.0); MEAN CORPUSCULAR HEMOGLOBIN 29.7 pg (26.0-34.0); MEAN CORPUSCULAR HGB CONC 32.7 G/dL (31.0-37.0); MEAN CORPUSCULAR VOLUME 91 fL (80-100); MONOCYTES # (AUTO) 0.8 K/uL (0.1-1.0); MONOCYTES % (AUTO) 9.8 % (2.0-9.0); NEUTROPHILS # (AUTO) 5.4 K/uL (1.8-7.7); NEUTROPHILS % (AUTO) 64.3 % (40.0-70.0); PLATELET COUNT (AUTO) 277 K/uL (150-450); RED BLOOD CELL COUNT(AUTO) 4.26 MIL/uL (4.00-5.20); RED CELL DISTRIBUTION WIDTH 16.9 % (11.5-14.5); WHITE BLOOD COUNT (AUTO) 8.3 K/uL (4.5-11.0)
[2024-01-10 20:48] LABS: ANION GAP 11 mmol/L (8-16); CALCIUM, TOTAL 8.3 mg/dL (8.8-10.5); CARBON DIOXIDE 25 mmol/L (22-29); CHLORIDE 105 mmol/L (98-107); GLOMERULAR FILTR. RATE CALC > 60 mL/min (>60); GLUCOSE,RANDOM 90 mg/dL (70-110); POTASSIUM 3.6 mmol/L (3.5-5.1); SODIUM SERUM 141 mmol/L (136-145); UREA NITROGEN, BLOOD 9 mg/dL (7-18)
[2024-01-10 21:04] LABS: ALCOHOL, BLOOD (SERUM) < 3 mg/dL (0-10)
[2024-01-11 04:35] VITALS: BP 151/92; PULSE 77; RESP 18; TEMP 98.2; O2SAT 95
[2024-01-11 05:00] VITALS: BP 151/92; PULSE 77; RESP 18; TEMP 97.2; O2SAT 96
[2024-01-11] MEDS ORDERED: LORazepam 2 MG TABLET PO PRN (05:00)
[2024-01-11] MEDS ORDERED: HALOPERIDOL 5 MG TABLET PO PRN (05:00)
[2024-01-11] MEDS ORDERED: LOPERAMIDE HCL 2 MG CAPSULE PO PRN (06:00)
[2024-01-11] MEDS ORDERED: ACETAMINOPHEN 325 MG TABLET PO PRN (06:00)
[2024-01-11] MEDS ORDERED: MAGNESIUM HYDROXIDE SUSPENSION 30 ML UDCUP PO PRN (06:00)
[2024-01-11] MEDS ORDERED: PETROLATUM,WHITE 28 GM JELLY TP PRN (06:00)
[2024-01-11] MEDS ORDERED: MAG HYDROX/ALUMINUM HYD/SIMETH ES 30 ML SUSPENSION UDCUP PO PRN (06:00)
[2024-01-11] MEDS ORDERED: BACITRACIN 28 GM OINTMENT TP PRN (06:00)
[2024-01-11] MEDS ORDERED: CloNIDine HCL 0.1 MG TABLET PO PRN (06:00)
[2024-01-11] MEDS ORDERED: OMEPRAZOLE 20 MG CAPSULE PO PRN (06:00)
[2024-01-11] MEDS ORDERED: ALBUTEROL SULFATE HFA 90 MCG/PUFF 8 GM INHALER IH PRN (06:00)
[2024-01-11] MEDS ORDERED: BENZOCAINE/MENTHOL LOZENGE PO PRN (06:00)
[2024-01-11] MEDS ORDERED: ONDANSETRON 4 MG TABLET PO PRN (06:00)
[2024-01-11] MEDS ORDERED: DOCUSATE SODIUM 100 MG CAPSULE PO PRN (06:00)
[2024-01-11] MEDS: LEVOTHYROXINE SODIUM 125 MCG TABLET PO SCH (07:06)
[2024-01-11] MEDS: MetFORMIN HCL 500 MG TABLET PO SCH (07:40)
[2024-01-11 07:50] LABS: GLUCOMETER DEV NAME(LOC) 3EX.2; GLUCOSE,POINT OF CARE 85 MG/DL (70-110)
[2024-01-11] MEDS: TICAGRELOR 90 MG TABLET PO SCH (08:40)
[2024-01-11] MEDS: FUROSEMIDE 20 MG TABLET PO SCH (08:41)
[2024-01-11] MEDS: MEMANTINE HCL 10 MG TABLET PO SCH (08:41)
[2024-01-11] MEDS: RANOLAZINE 500 MG ER TABLET PO SCH (08:41)
[2024-01-11] MEDS: ROSUVASTATIN CALCIUM 20 MG TABLET PO SCH (08:41)
[2024-01-11] MEDS: MONTELUKAST SODIUM 10 MG TABLET PO SCH (08:49)
[2024-01-11 09:06] VITALS: BP 138/100; PULSE 83; RESP 18; TEMP 97.5; O2SAT 99
[2024-01-11] MEDS: SERTRALINE HCL 100 MG TABLET PO SCH (11:00)
[2024-01-11 20:13] VITALS: BP 154/91; PULSE 101; RESP 19; TEMP 97.6; O2SAT 97
[2024-01-11] MEDS: MELATONIN 5 MG TABLET PO SCH (20:21)
[2024-01-12 05:36] LABS: GLUCOMETER DEV NAME(LOC) 3EX.2; GLUCOSE,POINT OF CARE 100 MG/DL (70-110)
[2024-01-12 08:28] LABS: CHOL/HDL RATIO 1.7 (3.9-5.7)
[2024-01-12 09:27] VITALS: BP 142/60; PULSE 80; RESP 17; TEMP 98.2; O2SAT 98
[2024-01-12] MEDS ORDERED: SERTRALINE HCL 100 MG TABLET PO SCH (09:45)
[2024-01-12] MEDS: SERTRALINE HCL 50 MG TABLET PO SCH (09:52)
[2024-01-12 13:40] LABS: HEMOGLOBIN A1C 5.7 % (3.8-5.6)
[2024-01-12] MEDS: BREXPIPRAZOLE 1 MG TABLET PO SCH (21:26)
[2024-01-13 06:46] LABS: GLUCOMETER DEV NAME(LOC) 3EX.2; GLUCOSE,POINT OF CARE 221 MG/DL (70-110)
[2024-01-13] MEDS: SERTRALINE HCL 100 MG TABLET PO SCH (09:00)
[2024-01-13 20:22] VITALS: BP 145/91; PULSE 94; RESP 18; TEMP 97.9; O2SAT 97
[2024-01-14 20:55] VITALS: BP 125/67; PULSE 81; RESP 16; TEMP 98; O2SAT 99
[2024-01-14] MEDS: ETHYL ALCOHOL 62% ANTISEPTIC NASAL SANITIZER 0.6 ML AMPUL NASAL SCH (21:42)
[2024-01-14] MEDS: ZOLPIDEM TARTRATE 10 MG TABLET PO PRN (22:04)
[2024-01-15 05:51] LABS: GLUCOMETER DEV NAME(LOC) 3EX.2; GLUCOSE,POINT OF CARE 82 MG/DL (70-110)
[2024-01-15 09:00] VITALS: BP 124/65; PULSE 75; RESP 18; TEMP 97; O2SAT 99
[2024-01-15 20:23] VITALS: BP 139/77; PULSE 71; RESP 18; TEMP 98; O2SAT 99
[2024-01-16 09:08] VITALS: BP 140/85; PULSE 85; RESP 18; TEMP 99; O2SAT 98
[2024-01-16 21:37] VITALS: BP 157/72; PULSE 83; RESP 18; TEMP 98.6; O2SAT 95
[2024-01-17 08:29] VITALS: BP 158/68; PULSE 74; RESP 18; TEMP 97.2; O2SAT 98
[2024-01-17 17:31] LABS: GLUCOMETER DEV NAME(LOC) 3EX.2; GLUCOSE,POINT OF CARE 100 MG/DL (70-110)
[2024-01-17 21:26] VITALS: BP 149/71; PULSE 89; RESP 16; TEMP 97.2; O2SAT 97
[2024-01-18 05:41] LABS: GLUCOMETER DEV NAME(LOC) 3E.I 2; GLUCOSE,POINT OF CARE 78 MG/DL (70-110)
[2024-01-18 08:56] VITALS: BP 122/76; PULSE 79; RESP 17; TEMP 98.1; O2SAT 97
[2024-01-18 17:36] LABS: GLUCOMETER DEV NAME(LOC) 3E.I 2; GLUCOSE,POINT OF CARE 93 MG/DL (70-110)
[2024-01-18 21:44] VITALS: BP 125/68; PULSE 79; RESP 18; TEMP 97.4; O2SAT 98
[2024-01-19 07:15] LABS: GLUCOMETER DEV NAME(LOC) 3E.I 2; GLUCOSE,POINT OF CARE 89 MG/DL (70-110)
[2024-01-19 09:30] VITALS: BP 121/59; PULSE 77; RESP 18; TEMP 98.4; O2SAT 97
== END 2024-01-19 12:54 | DRG 885 ==
LOC: EMS 17:35 → 3EX 01-11 04:33
PROVIDERS: ADMIT Psychiatry & Neurology Psychiatry; ATTEND Psychiatry & Neurology Psychiatry
PROC: GZHZZZZ Group Psychotherapy (ICD-10-PCS; principal; 2024-01-12)
PROC: GZ52ZZZ Individual Psychotherapy, Cognitive (ICD-10-PCS; 2024-01-13)
DX: F31.4 Bipolar disorder, current episode depressed, severe, without psychotic features (principal); I11.0 Hypertensive heart disease with heart failure; F02.83 Dementia in other diseases classified elsewhere, unspecified severity, with mood disturbance; F02.818 Dementia in other diseases classified elsewhere, unspecified severity, with other behavioral disturbance; F02.84 Dementia in other diseases classified elsewhere, unspecified severity, with anxiety; R45.851 Suicidal ideations; Z20.822 Contact with and (suspected) exposure to COVID-19; G30.9 Alzheimer's disease, unspecified; I25.10 Atherosclerotic heart disease of native coronary artery without angina pectoris; F17.210 Nicotine dependence, cigarettes, uncomplicated; I50.9 Heart failure, unspecified; J44.9 Chronic obstructive pulmonary disease, unspecified; E11.9 Type 2 diabetes mellitus without complications; E78.00 Pure hypercholesterolemia, unspecified; D50.9 Iron deficiency anemia, unspecified; E03.9 Hypothyroidism, unspecified; G47.00 Insomnia, unspecified; K21.9 Gastro-esophageal reflux disease without esophagitis; K59.00 Constipation, unspecified; I25.2 Old myocardial infarction; Z79.899 Other long term (current) drug therapy; Z82.0 Family history of epilepsy and other diseases of the nervous system; Z88.0 Allergy status to penicillin; Z88.6 Allergy status to analgesic agent; Z90.710 Acquired absence of both cervix and uterus; Z91.52 Personal history of nonsuicidal self-harm; Z95.5 Presence of coronary angioplasty implant and graft; Z88.8 Allergy status to other drugs, medicaments and biological substances
CPT/HCPCS: 80048; 80061; 80307; 82962; 83036; 85025; 87081; 87481; 99285; G0378; G0480

== ENCOUNTER 2024-04-25 19:29 | Emergency (ER) | payer MEDICARE, MEDICAID ==
[~2024-04-25] VITALS: Ht 160 cm; Wt 68.2 kg
[~2024-04-25 19:29] MED LIST changes: -BUPR-49 PO; -QUET-28 PO; -RISP4TAB94 PO; +TOPI-258 PO; -TOPI100T37 PO
[2024-04-25 19:33] VITALS: BP 155/88; PULSE 88; RESP 15; TEMP 98.3; O2SAT 100
[2024-04-25 19:55] LABS: BASOPHILS % (AUTO) 1.3 % (0.0-2.0); EOSINOPHILS % (AUTO) 1.2 % (1.0-6.0); HEMOGLOBIN 14.2 g/dL (12.0-16.0); LYMPHOCYTES # (AUTO) 1.6 K/uL (1.0-4.8); LYMPHOCYTES % (AUTO) 17.9 % (22.0-44.0); MEAN CORPUSCULAR HEMOGLOBIN 31.1 pg (26.0-34.0); MEAN CORPUSCULAR HGB CONC 33.7 G/dL (31.0-37.0); MEAN CORPUSCULAR VOLUME 92 fL (80-100); MONOCYTES # (AUTO) 0.7 K/uL (0.1-1.0); MONOCYTES % (AUTO) 7.8 % (2.0-9.0); NEUTROPHILS # (AUTO) 6.4 K/uL (1.8-7.7); NEUTROPHILS % (AUTO) 71.8 % (40.0-70.0); PLATELET COUNT (AUTO) 279 K/uL (150-450); RED BLOOD CELL COUNT(AUTO) 4.55 MIL/uL (4.00-5.20); RED CELL DISTRIBUTION WIDTH 16.6 % (11.5-14.5); WHITE BLOOD COUNT (AUTO) 8.9 K/uL (4.5-11.0)
[2024-04-25 20:02] LABS: ANION GAP 11 mmol/L (8-16); CALCIUM, TOTAL 9.2 mg/dL (8.8-10.5); CARBON DIOXIDE 28 mmol/L (22-29); CHLORIDE 102 mmol/L (98-107); CREATININE 0.77 mg/dL (0.60-1.30); GLOMERULAR FILTR. RATE CALC > 60 mL/min (>60); GLUCOSE,RANDOM 111 mg/dL (70-110); POTASSIUM 4.5 mmol/L (3.5-5.1); SODIUM SERUM 141 mmol/L (136-145); UREA NITROGEN, BLOOD 17 mg/dL (7-18)
[2024-04-25 20:12] LABS: ALCOHOL, BLOOD (SERUM) < 3 mg/dL (0-10)
== END 2024-04-26 02:54 | disposition left against medical advice (07) ==
LOC: EMS 19:29
DX: R45.851 Suicidal ideations (principal); R44.0 Auditory hallucinations; Z53.21 Procedure and treatment not carried out due to patient leaving prior to being seen by health care provider
CPT/HCPCS: 36415; 80048; 85025; G0480

== ENCOUNTER 2024-04-26 23:54 | Emergency (ER) | payer MEDICARE, MEDICAID ==
[~2024-04-26] VITALS: Ht 162.6 cm; Wt 63.0 kg
[2024-04-27] MEDS: DiphenhydrAMINE HCL 50 MG/ML VIAL IM ONE (02:17)
[2024-04-27] MEDS: LORazepam 2 MG/ML VIAL IM ONE (02:18)
[2024-04-27] MEDS: HALOPERIDOL LACTATE 5 MG/ML VIAL IM ONE (02:18)
[2024-04-27 02:22] VITALS: TEMP 97.7
[2024-04-27 02:24] VITALS: BP 137/66; PULSE 67; RESP 18; O2SAT 98
[2024-04-27 02:41] LABS: COVID AG,FIA SOURCE NASAL SWAB
[2024-04-27 03:02] LABS: SARS-COV2 (COVID) ANTIGEN,FIA Negative (Negative)
== END 2024-04-27 03:25 ==
LOC: EMS 23:58
DX: F31.9 Bipolar disorder, unspecified (principal); E07.9 Disorder of thyroid, unspecified; F02.83 Dementia in other diseases classified elsewhere, unspecified severity, with mood disturbance; G30.9 Alzheimer's disease, unspecified; I50.9 Heart failure, unspecified; J44.9 Chronic obstructive pulmonary disease, unspecified; Z79.02 Long term (current) use of antithrombotics/antiplatelets; Z79.84 Long term (current) use of oral hypoglycemic drugs; Z79.899 Other long term (current) drug therapy; Z88.0 Allergy status to penicillin; Z88.6 Allergy status to analgesic agent; Z20.822 Contact with and (suspected) exposure to COVID-19
CPT/HCPCS: 99285; 87426; 96372; J1200; J1630; J2060

== ENCOUNTER 2024-06-11 19:21 | Emergency (ER) | payer MEDICARE, MEDICAID ==
[~2024-06-11] VITALS: Ht 160 cm; Wt 75.0 kg
[~2024-06-11 19:21] MED LIST changes: -BREX1TAB PO; +DONE-51 PO; -FURO20TA5 PO; +LAMO25TA36 PO; +MODA100T65 PO; -POTA8TAB71 PO; +QUET25TA36 PO; -SERT-439 PO; +SERT-440 PO; -TICA90TA PO; -TOPI-258 PO
[2024-06-11 19:39] VITALS: TEMP 98.1
[2024-06-11 20:43] LABS: BASOPHILS % (AUTO) 1.2 % (0.0-2.0); EOSINOPHILS % (AUTO) 1.5 % (1.0-6.0); HEMATOCRIT 39.1 % (36-46); LYMPHOCYTES # (AUTO) 1.1 K/uL (1.0-4.8); LYMPHOCYTES % (AUTO) 11.4 % (22.0-44.0); MEAN CORPUSCULAR HEMOGLOBIN 31.2 pg (26.0-34.0); MEAN CORPUSCULAR HGB CONC 33.1 G/dL (31.0-37.0); MEAN CORPUSCULAR VOLUME 94 fL (80-100); MONOCYTES # (AUTO) 0.7 K/uL (0.1-1.0); MONOCYTES % (AUTO) 7.5 % (2.0-9.0); NEUTROPHILS # (AUTO) 7.6 K/uL (1.8-7.7); NEUTROPHILS % (AUTO) 78.4 % (40.0-70.0); PLATELET COUNT (AUTO) 281 K/uL (150-450); RED BLOOD CELL COUNT(AUTO) 4.15 MIL/uL (4.00-5.20); RED CELL DISTRIBUTION WIDTH 15.2 % (11.5-14.5); WHITE BLOOD COUNT (AUTO) 9.7 K/uL (4.5-11.0)
[2024-06-11 20:57] LABS: ALBUMIN 2.9 g/dL (3.4-5.0); BILIRUBIN,DIRECT 0.1 mg/dL (0.00-0.20); BILIRUBIN,TOTAL 0.2 mg/dL (0.1-1.0); TOTAL PROTEIN, SERUM 5.9 g/dL (6.4-8.2)
[2024-06-11 21:00] LABS: ANION GAP 7 mmol/L (8-16); CARBON DIOXIDE 29 mmol/L (22-29); CHLORIDE 103 mmol/L (98-107); CREATININE 0.93 mg/dL (0.60-1.30); GLOMERULAR FILTR. RATE CALC 60 mL/min (>60); GLUCOSE,RANDOM 122 mg/dL (70-110); LIPASE 41 U/L (16-77); POTASSIUM 3.9 mmol/L (3.5-5.1); SODIUM SERUM 138 mmol/L (136-145); TROPONIN I-HIGH SENSITIVITY 50 ng/L (<51); UREA NITROGEN, BLOOD 17 mg/dL (7-18)
[2024-06-11] MEDS: MAG HYDROX/ALUMINUM HYD/SIMETH 30 ML SUSPENSION UDCUP PO ONE (21:01)
[2024-06-11] MEDS: PANTOPRAZOLE SODIUM 40 MG/VIAL IVP ONE (21:02)
[2024-06-11 21:04] LABS: CALCIUM, TOTAL 8.8 mg/dL (8.8-10.5)
[2024-06-11 21:40] VITALS: BP 135/75; PULSE 78; RESP 15; O2SAT 94
[2024-06-11] MEDS ORDERED: FAMO20 PO (21:42)
== END 2024-06-11 23:31 | disposition home or self-care (01) ==
LOC: EMS 19:21
DX: K21.9 Gastro-esophageal reflux disease without esophagitis (principal); J44.9 Chronic obstructive pulmonary disease, unspecified; I50.9 Heart failure, unspecified; F32.A Depression, unspecified; F02.83 Dementia in other diseases classified elsewhere, unspecified severity, with mood disturbance; Z79.899 Other long term (current) drug therapy; Z88.0 Allergy status to penicillin; Z88.6 Allergy status to analgesic agent; Z88.8 Allergy status to other drugs, medicaments and biological substances
CPT/HCPCS: 99284; 96374; 80048; 80076; 83690; 84484; 85025; 36415; 93005; J2470